=== PATIENT | female | born 1995 | race Two or more races ===

== ENCOUNTER 2017-08-17 04:00 | Emergency (ER) | payer SELFPAY ==
[~2017-08-17] VITALS: Ht 160 cm; Wt 61.2 kg
[2017-08-17 06:23] VITALS: BP 132/79
[2017-08-17] MEDS ORDERED: LIDOCAINE 1% HCL (LOCAL ANESTH.) INJ 20ML MDV ONE (06:30)
[2017-08-17] MEDS ORDERED: NEOMYCIN-BACITRACIN-POLYM UNITDOSE PKG TOP OINT TOP ONE (06:45)
[2017-08-17] MEDS ORDERED: IBUPROFEN 600 MG TAB PO ONE (06:45)
[2017-08-17] MEDS ORDERED: LIDOCAINE 1% HCL (LOCAL ANESTH.) INJ 20ML MDV IJ ONE (06:45)
== END 2017-08-17 07:15 | disposition home or self-care (01) ==
LOC: ER 04:05
DX: S01.81XA Laceration without foreign body of other part of head, initial encounter (principal); S00.83XA Contusion of other part of head, initial encounter; Y08.89XA Assault by other specified means, initial encounter; Y93.89 Activity, other specified; Y99.8 Other external cause status; Y92.89 Other specified places as the place of occurrence of the external cause
CPT/HCPCS: 12013; 70450; 72125; 81025; 99284; J2001